=== PATIENT | female | born 1975 | race Caucasian/White ===

== ENCOUNTER 2022-09-28 01:02 | Day surgery (SDC) | payer BC, SELFPAY ==
[2022-09-22 12:50] VITALS: BMI 27.8
--- NOTE | 2022-09-22 13:07 | SUR.PREOP ---
Report to the Outpatient Waiting Room, entrance under the green pavilion located off [facility], at time 0615 on date 09/28/2022. Planned Procedure Time: 0815. Time changes happen often and if your time is changed the preop area will call you the afternoon before. - You and your visitor will be asked to self-screen and do not enter if you have any COVID symptoms. - A mask is optional within the hospital at this time. Patients may have clear liquids (water, carbonated beverages, clear teas, apple juice) until 3 hours prior to surgery with a maximum of 20 ounces- 0515. - No food from midnight until time of surgery - Infants may have breast milk until 4 hours before surgery, formula 6 hours prior to surgery. - Children will be allowed to drink immediately following surgery. If applicable, please bring a bottle or sippy cup to assist with drinking. Juice, water, soda, and popsicles are readily available. For infants on formula, please bring formula the day of surgery. Pacifiers are allowed. Take the following medications with a SIP of water the morning of surgery: Metoprolol DO NOT STOP ANY OF YOUR OTHER PRESCRIPTION MEDICATIONS PRIOR TO SURGERY ?EXCEPT THE FOLLOWING Medications to discontinue per physician Vitamins/Supplements Date to take last dose 09/25/2022 Please no make-up, nail german, hairspray, perfume, deodorant, or body powder the day of surgery. No jewelry (including any body piercings) or valuables the day of surgery, leave them at home. Please take a shower or bath the night before, or the morning of, surgery with an antibacterial soap. Wear comfortable, loose fitting clothing. Children are encouraged to wear pajamas. - Jewelry must be removed prior to entering the operating room. Rings and piercings that are not removed may be cut off. - The hospital will not accept responsibility for valuables. - Please leave all valuables, including medications, at home the day of surgery. If you are going home after surgery, a licensed skidder driver must drive you home. - NO public transportation without another adult if you receive anesthesia. - We recommend that an adult stay with you for 24 hours following discharge. - We also recommend that you do not drive, make important decision, drink alcoholic beverages, or take any drugs that were not prescribed by your health care provider for at least 24 hours after your discharge time. For Pediatric surgeries, we recommend two adults accompany the child home. Follow any additional instructions given to you from your surgeon. If you or anyone in your household have experienced Covid symptoms in the past week, please notify your surgeon or the nurse liaison at the phone number below for possible testing. Telephone instructions given to patient- Amie and asked if any additional questions and then verbalized understanding. Patient advised to call surgeon office or pre surgery nurse liaison [phone] if any additional questions.
[2022-09-28] VITALS (7 sets, daily range): BP systolic 75–106; BP diastolic 40–72; PULSE 50–88; RESP 16–18; TEMP 37.1; O2SAT 96–99
[2022-09-28] MEDS: LACTATED RINGERS 1,000 ML 30 ML IV CONT ×2 (07:15→08:26)
[2022-09-28] MEDS: ACETAMINOPHEN 500 MG TABLET 1000 MG PO (07:24)
--- NOTE | 2022-09-28 07:24 | P.PNAN_ITS ---
Anes - Initial Pre Proc Eval Procedure: Operation Date: 09/28/22 08:15 Proposed Procedures p Hysteroscopy Dilation and Curettage - Luba Jauregui MD Date/Time: 09/28/22 07:24 Surgeon: Luba Jauregui MD Pre Op Diagnosis: Irg Bleeding Patient Data Age: 47 Gender: F Height: 1.65 m Weight: 76.5 kg Allergies Allergy/AdvReac Type Severity Reaction Status Date / Time codeine AdvReac Unknown Headache Verified 09/22/22 12:50 Home Medications Medication Instructions Recorded Confirmed Type [id number] 3-fat com #1 27 1 cap PO DAILY 09/22/22 09/22/22 History mg-1 mg-300 mg capsule lactobacillus combination no.8 3 See Rx Instructions .Route .COMPLEX 09/22/22 09/22/22 History billion cell capsule magnesium 200 mg tablet 400 mg PO DAILY 09/22/22 09/22/22 History metoprolol succinate 25 mg 25 mg PO DAILY 09/22/22 09/22/22 History tablet,extended release 24 hr multivit with minerals-iron 18 1 tablet PO DAILY 09/22/22 09/22/22 History mg-folic ac 400 mcg-vit K 25 mcg tablet (Adults Multivitamin) ropinirole 0.25 mg tablet 0.25 mg PO DAILY 09/22/22 09/22/22 History sertraline 100 mg tablet 100 mg PO DAILY 09/22/22 09/22/22 History Patient hx anesthesia problems: none Family hx anesthesia problems: none Results Review: All pre-operative results and documents have been reviewed as part of the pre- operative evaluation. [facility] Family History Family History Father Family history of arthritis Social History Social History Smoking packs per day: 0.75 Smoking cigarettes per day: 15.0 Years smoked: 25 Smoking pack-years: 18.75 Smoking status: Current every day smoker Tobacco type: e-cigarettes/vaping Second hand tobacco smoke exposure: Yes Alcohol intake: former Living arrangements: with family Spiritual care concerns: No Anes - Eval Final PreProcedure Day of Procedure 09/28/22 07:24 Patient weight: overweight Heart: regular rate and rhythm Lungs: decreased breath sounds Neurological: alert and oriented Last oral intake: >/= 8 hours ASA classification: III Emergent: no Anesthetic plan: proceed Anesthesia type and monitoring: general GIVS and standard monitoring Results Review: All pre-operative results and documents have been reviewed as part of the pre- operative evaluation. Informed Consent: The patient's anesthetic plan and its attendant risks and benefits were discuss ed with the patient/family/POA. Questions were solicited and answers provided to the satisfaction of the patient/family/POA.
--- NOTE | 2022-09-28 07:56 | WPDHPUPDATE1 ---
History and Physical Update Update Date/Time: 09/28/22 07:56 History and Physical has been reviewed, including an updated exam of the patient. There are NO changes in the patient's condition. Risks, benefits, and alternatives have been discussed and questions answered. Patient agrees to proceed with procedure.
--- NOTE | 2022-09-28 07:57 | PM.HPGS ---
History of Present Illness History of Present Illness Consent: Risks, benefits, and alternatives have been discussed and questions answered. Patient agrees to proceed with procedure. Chief complaint: Irg Bleeding Narrative: Dayanna Ortiz is a 47 year old female has light but frequent bleeding. Patient has had cycles approximately every 2 weeks for the past 2 months. Patient has no other complaints. It was recommended to proceed with D&C hysteroscopy for evaluation. Risks of infection, bleeding, and perforation are reviewed. Possible pathology was discussed. Patient voices understanding and agrees to proceed. Due to her prior history of endometrial ablation, she was given Cytotec 1000mcg nightly for 7 days. Review of Systems Review of Systems: not repeated day of surgery; patient states no changes in status [facility] Past Medical History Medical History (Updated 09/28/22 @ 08:02 by Luba Jauregui MD) Interstitial cystitis Kidney stones (normal spontaneous vaginal delivery) G1- stillborn twins at 26 weeks G2- 36 week G3- 37 week Surgical History Surgical History (Updated 09/28/22 @ 08:02 by Luba Jauregui MD) H/O excision of ganglion cyst History of bilateral tubal ligation 2013 History of D&C 1997 for abnormal bleeding History of endometrial ablation 2016 History of hysteroscopy 2016 History of laparoscopic cholecystectomy History of laparoscopy 1991, 1999, 2002 all for endometriosis History of tonsillectomy Family History Family History Father Family history of arthritis Social History Social History Smoking packs per day: 0.75 Smoking cigarettes per day: 15.0 Years smoked: 25 Smoking pack-years: 18.75 Smoking status: Current every day smoker Tobacco type: e-cigarettes/vaping Second hand tobacco smoke exposure: Yes Alcohol intake: former Living arrangements: with family Spiritual care concerns: No Meds Home Medications and Allergies Home Medications Medication Instructions Recorded Confirmed Type [id number] 3-fat com #1 27 1 cap PO DAILY 09/22/22 09/28/22 History mg-1 mg-300 mg capsule lactobacillus combination no.8 3 See Rx Instructions .Route .COMPLEX 09/22/22 09/28/22 History billion cell capsule magnesium 200 mg tablet 400 mg PO DAILY 09/22/22 09/28/22 History metoprolol succinate 25 mg 25 mg PO DAILY 09/22/22 09/28/22 History tablet,extended release 24 hr multivit with minerals-iron 18 1 tablet PO DAILY 09/22/22 09/28/22 History mg-folic ac 400 mcg-vit K 25 mcg tablet (Adults Multivitamin) ropinirole 0.25 mg tablet 0.25 mg PO DAILY 09/22/22 09/28/22 History sertraline 100 mg tablet 100 mg PO DAILY 09/22/22 09/28/22 History Allergies Allergy/AdvReac Type Severity Reaction Status Date / Time codeine AdvReac Unknown Headache Verified 09/28/22 07:36 Vital Signs Vital Signs - 24 hr 09/28/22 06:32 09/28/22 07:00 Temperature 98.7 F Pulse Rate 50 L 53 L Respiratory Rate 18 Blood Pressure 86/48 L 75/40 L Pulse Oximetry 99 Oxygen Delivery Room Air Exam Const: General: healthy appearing and alert Orientation/consciousness: patient oriented x3 Resp: Effort & Inspection: normal respiratory effort GI: GI Palp: Yes Soft to palpation, No Tenderness to palpation present (GI) and No Palpable mass present : External Female Exam: normal external appearance Speculum Exam - Vagina: normal appearance of the vagina and normal vaginal discharge Speculum Exam - Cervix: normal appearance of the cervix Bimanual exam- vagina & uterus: uterine size normal and consistency normal Bimanual Exam- Adnexa, other: normal adnexae and No adnexal tenderness Neuro: General: patient oriented x3 Assessment and Plan Assessment and plan (1) Irregular menstrual bleeding: Code(s): N9
[2022-09-28] MEDS: LIDOCAINE HCL 1% LOCAL INJ 10 ML VIAL INFILTRATE (08:15)
--- NOTE | 2022-09-28 08:28 | W.PM.PROC2 ---
Procedure Note - Detailed Date of Procedure 09/28/22 Pre-op Diagnosis Irregular Bleeding Post-op Diagnosis Same Procedure Performed D&C hysteroscopy Surgeon Luba Jauregui MD Anesthesia MAC and Local Findings the internal cervical os was stenotic; the uterus appears generally scarred consistent with prior ablation Description of Procedure The the patient is taken to the operating room and placed under anesthesia in the dorsal lithotomy position. She was prepped and draped in the usual sterile fashion. [place] speculum was placed in the vagina and the cervix grasped on the anterior lip with a tenaculum. The cervix is injected in each quadrant with 1% lidocaine. The uterus is attempted to be sounded and stenosis is noted at 3cm. The os Finders are used and the cervix dilated to a 5 Hegar. The uterus sounds to 7cm. The hysteroscope was placed and with no abnormalities noted it is removed. The small sharp curette is used to curette the endometrium until a good uterine cry was noted in all areas. Minimal material was obtained consistent with the visual appearance. All instruments were then removed. Sponge, needle, and instrument counts are correct per the OR staff. Patient is awakened from anesthesia and taken to recovery in stable condition. Estimated Blood Loss 5 Drains No Packing No Pathology Yes ( Endometrial curetting) Complications No immediate complications Condition Stable Disposition PACU
[2022-09-28] MEDS: oxyCODONE HCL (*CRX) 5 MG TAB IR PO (09:10)
== END 2022-09-28 09:20 | disposition home or self-care (01) ==
PROVIDERS: Visit Provider Obstetrics & Gynecology Gynecology
PROC: 0U5B8ZZ Destruction of Endometrium, Via Natural or Artificial Opening Endoscopic (ICD-10-PCS; CPT 58563; principal; 2022-09-28 08:15)
DX: N92.6 Irregular menstruation, unspecified (principal); F17.290 Nicotine dependence, other tobacco product, uncomplicated
CPT/HCPCS: 58558; 88305; A9270; J2250; J2704; J3010; J7120